=== PATIENT | female | born 1970 | race Caucasian/White ===

== ENCOUNTER 2016-12-31 23:30 | Emergency (ER) | payer MEDICAID, MEDICARE, OTHER ==
[~2016-12-31] VITALS: Ht 167.6 cm; Wt 74.8 kg
[2017-01-01] MEDS ORDERED: IV NORMAL SALINE 1000ML BAG 1,000 ML IV SCH (01:15)
--- NOTE | 2017-01-01 01:22 | PHYS DOC ---
Past Medical History Past Medical History: Anemia, Bipolar, Depression, Schizophrenia Past Surgical History: Tubal ligation Alcohol Use: None Drug Use: None Adult General Chief Complaint Chief Complaint: CHEST PAIN HPI HPI Patient is a 46 year old female who presents with complaint of chest pain. Patient states that she has been having symptoms over the past 2-3 months of intermittent sharp chest pain in the middle of her chest. Patient states that she started having multiple episodes earlier this evening. Patient states that the pain came on spontaneously while at rest. Patient denies any known exacerbating or alleviating factors. Patient states that the pain radiates into her shoulders and upper extremities. Patient denies any associated diaphoresis, nausea, shortness of breath. The patient has history of depression and was recently released from inpatient psychiatric treatment. The patient states that she had been evaluated in the past and was told that she had acid reflux symptoms and was given Maalox for treatment. Patient states that this has not helped with her symptoms at this time. Patient has family history of coronary artery disease and myocardial infarction. Patient denies any history of hypertension, hyperlipidemia, or diabetes mellitus. Patient does have history of tobacco use. Patient rates her pain currently as 6 out of 10. Review of Systems Review of Systems Constitutional: Denies fever or chills [] Eyes: Denies change in visual acuity, redness, or eye pain [] HENT: Denies nasal congestion or sore throat [] Respiratory: Denies cough or shortness of breath [] Cardiovascular: Chest pain, denies edema[] GI: Denies abdominal pain, nausea, vomiting, bloody stools or diarrhea [] : Denies dysuria or hematuria [] Musculoskeletal: Denies back pain or joint pain [] Integument: Denies rash or skin lesions [] Neurologic: Denies headache, focal weakness or sensory changes [] Current Medications Current Medications Current Medications Medications (Trade) Dose Ordered Sig/Ana Start Time Stop Time Status Last Admin Dose Admin Aspirin (Children'S Aspirin) 324 mg 1X ONCE 01/01/17 01:30 01/01/17 01:31 DC 01/01/17 01:27 324 MG Sodium Chloride 1,000 ml @ 1,000 mls/hr Q1H 01/01/17 01:15 01/01/17 02:14 DC 01/01/17 01:26 1,000 MLS/HR Allergies Allergies Allergies Coded Allergies Type Severity Reaction Last Updated Verified codeine Allergy Unknown 12/31/16 Yes pentobarbital Allergy Unknown 12/31/16 Yes Uncoded Allergies Type Severity Reaction Last Updated Verified PENICILLIN Allergy Unknown 12/31/16 Physical Exam Physical Exam Constitutional: Alert, afebrile, no acute distress. [] HENT: Normocephalic, atraumatic, bilateral external ears normal, oropharynx moist, no oral exudates, nose normal. [] Eyes: PERRLA, EOMI, conjunctiva normal, no discharge. [] Neck: Normal range of motion, no tenderness, supple, no stridor. [] Cardiovascular:Heart rate regular rhythm, no murmur [] Lungs & Thorax: Bilateral breath sounds clear to auscultation, anterior chest wall tenderness to palpation causing reproducible pain [] Abdomen: Bowel sounds normal, soft, no tenderness, no masses, no pulsatile masses. [] Skin: Warm, dry, no erythema, no rash. [] Back: No tenderness, no CVA tenderness. [] Extremities: No tenderness, no cyanosis, no clubbing, ROM intact, no edema. [] Neurologic: Alert and oriented X 3, normal motor function, normal sensory function, no focal deficits noted. [] Current Patient Data Vital Signs Vital Signs Date Time Temp Pulse Resp B/P (MAP) Pulse Ox O2 Delivery O2 Flow Rate FiO2 12/31/16 23:50 98.1 90 16 108/65 (79) 99 Room Air 98.1 Lab Values Laboratory Tests Test 12/31/16 23:40 01/01/17 02:15 01/01/17 02:30 White Blood Count 9.5 x10^3/uL (4.0-11.0) Red Blood Count 3.79 x10^6/uL (3.50-5.40) Hemoglobin 11.4 g/dL (12.0-15.5) L Hematocrit 35.0 % (36.0-47.0) L Mean Corpuscular Volume 93 fL (79-100) Mean Corpuscular Hemoglobin 30 pg (25-35) Mean Corpuscular Hemoglobin Concent 33 g/dL (31-37) Red Cell Distribution Width 14.6 % (11.5-14.5) H Platelet Count 336 x10^3/uL (140-400) Neutrophils (%) (Auto) 62 % (31-73) Lymphocytes (%) (Auto) 27 % (24-48) Monocytes (%) (Auto) 9 % (0-9) Eosinophils (%) (Auto) 2 % (0-3) Basophils (%) (Auto) 0 % (0-3) Neutrophils # (Auto) 5.9 x10^3uL (1.8-7.7) Lymphocytes # (Auto) 2.5 x10^3/uL (1.0-4.8) Monocytes # (Auto) 0.9 x10^3/uL (0.0-1.1) Eosinophils # (Auto) 0.2 x10^3/uL (0.0-0.7) Basophils # (Auto) 0.0 x10^3/uL (0.0-0.2) Sodium Level 139 mmol/L (136-145) Potassium Level 3.6 mmol/L (3.5-5.1) Chloride Level 104 mmol/L (98-107) Carbon Dioxide Level 25 mmol/L (21-32) Anion Gap 10 (6-14) Blood Urea Nitrogen 14 mg/dL (7-20) Creatinine 1.0 mg/dL (0.6-1.0) Estimated GFR (Cockcroft-Gault) 59.2 Glucose Level 93 mg/dL (70-99) Calcium Level 8.8 mg/dL (8.5-10.1) Magnesium Level 2.2 mg/dL (1.8-2.4) Creatine Kinase 72 U/L (26-192) 59 U/L (26-192) Creatine Kinase MB (Mass) < 0.5 ng/mL (0.0-3.6) < 0.5 ng/mL (0.0-3.6) Creatine Kinase MB Relative Index 0.7 % (0-4) 0.8 % (0-4) Troponin I Quantitative < 0.017 ng/mL (0.000-0.055) < 0.017 ng/mL (0.000-0.055) POC Urine HCG, Qualitative Hcg negative (Negative) Laboratory Tests 12/31/16 23:40 Laboratory Tests 12/31/16 23:40 EKG EKG Interpreted by me: Heart rate 88, sinus rhythm, normal intervals, normal axis, nonspecific T-wave inversion in lead 3 and in V3, no acute ST elevations or depressions[] Radiology/Procedures Radiology/Procedures One view AP chest x-ray interpreted by me: No infiltrates, no effusions, normal cardiac silhouette[] Course & Med Decision Making Course & Med Decision Making Pertinent Labs and Imaging studies reviewed. (See chart for details) Patient's symptoms are atypical for chest pain due to angina. Patient's heart score is is to placing her risk of cardiac events to be 0.9-1.7% in the next 2 weeks. Patient had 2 sets of cardiac enzymes which were negative. The patient is appropriate for outpatient follow-up in the next 2 days with cardiology for reevaluation and outpatient stress testing. The patient will be continued on daily aspirin. Recommended return to emergency department for any worsening symptoms. Patient voiced understanding and in agreement with treatment plan. Dragon Disclaimer Dragon Disclaimer This electronic medical record was generated, in whole or in part, using a voice recognition dictation system. Departure Departure Impression: Primary Impression: Atypical chest pain Disposition: HOME, SELF-CARE Condition: STABLE Referrals: UNKNOWN PCP NAME (PCP) RASHMI GRAMAJO MD Patient Instructions: Chest Pain (Nonspecific) Additional Instructions: Follow-up in 2 days with cardiology for reevaluation and outpatient stress testing. Return to the emergency department for any worsening symptoms. Scripts Aspirin (ASPIRIN) 325 Mg Tablet 1 TAB PO DAILY, #30 TAB 0 Refills Prov: GISELA MONTOYA MD 01/01/17 GISELA MONTOYA MD Jan 01, 2017 01:22
[2017-01-01 01:26] LABS: BASO % 0 % (0-3); EOS % 2 % (0-3); HEMOGLOBIN 11.4 g/dL (12.0-15.5); LYMPH # 2.5 x10^3/uL (1.0-4.8); LYMPH % 27 % (24-48); MEAN CORPUSCULAR HEMOGLOBIN 30 pg (25-35); MEAN CORPUSCULAR HGB CONC 33 g/dL (31-37); MEAN CORPUSCULAR VOLUME 93 fL (79-100); MONO % 9 % (0-9); NEUT % 62 % (31-73); PLATELET COUNT 336 x10^3/uL (140-400); RED BLOOD COUNT 3.79 x10^6/uL (3.50-5.40); RED CELL DISTRIBUTION WIDTH 14.6 % (11.5-14.5); WHITE BLOOD COUNT 9.5 x10^3/uL (4.0-11.0)
[2017-01-01] MEDS ORDERED: ASPIRIN CHEWABLE 81 MG TABLET. PO ONE (01:30)
[2017-01-01 01:42] LABS: CALCIUM 8.8 mg/dL (8.5-10.1); GFR 59.2; MAGNESIUM 2.2 mg/dL (1.8-2.4); POTASSIUM 3.6 mmol/L (3.5-5.1)
[2017-01-01 01:55] LABS: CREATINE KINASE 72 U/L (26-192)
[2017-01-01 02:05] LABS: CKMB MASS < 0.5 ng/mL (0.0-3.6)
[2017-01-01 02:50] LABS: CREATINE KINASE 59 U/L (26-192)
[2017-01-01 03:06] LABS: CKMB MASS < 0.5 ng/mL (0.0-3.6)
[2017-01-01] MEDS ORDERED: ASPI325T8 PO (03:31)
[2017-01-01 04:42] VITALS: BP 104/62
--- NOTE | 2017-01-01 07:16 | RAD ---
Portable chest, 01/01/2017: History: Chest pain The heart size and pulmonary vascularity are normal. No pulmonary infiltrate is seen. There is no evidence of pleural fluid. IMPRESSION: No acute cardiopulmonary abnormality is detected.
--- NOTE | 2017-01-01 08:13 | EKG ---
[facility] [address] [place] [address] Test Date: 2016-12-31 Test Time: 23:35:24 Pat Name: ANGELICA NAYLOR Department: Room: Gender: F [employer] Supervisor: : [id number] Requested By: GISELA MONTOYA Order Number: [id number] Reading MD: Joseph Santoyo Measurements Intervals [place] Rate: 88 P: 54 OK: 190 QRS: 43 QRSD: 66 T: 17 QT: 370 QTc: 451 Interpretive Statements SINUS RHYTHM Electronically Signed On 01-06-2017 10:19:08 CDT by Joseph Santoyo
== END 2017-01-01 05:13 | disposition home or self-care (01) ==
LOC: ER 23:30
DX: R07.89 Other chest pain (principal); F32.9 Major depressive disorder, single episode, unspecified; F20.9 Schizophrenia, unspecified; Z86.2 Personal history of diseases of the blood and blood-forming organs and certain disorders involving the immune mechanism; Z87.891 Personal history of nicotine dependence; Z88.5 Allergy status to narcotic agent; Z88.8 Allergy status to other drugs, medicaments and biological substances
CPT/HCPCS: 36415; 71010; 80048; 81025; 82553; 83735; 84484; 85025; 93005; 96360; 99285; J7030

== ENCOUNTER → 2017-07-08 | Outpatient (CLI) | payer MEDICARE | END | disposition home or self-care (01) | LOC: NM 09:03 | DX: R07.9 Chest pain, unspecified (principal); Z79.01 Long term (current) use of anticoagulants; Z87.891 Personal history of nicotine dependence | CPT/HCPCS: 78452; 93017; 96374; 96376; A9500 ==